=== PATIENT | female | born 1945 | race American Indian/Alaskan Native ===

== ENCOUNTER 2016-09-01 08:36 | Day surgery (SDC) | payer MEDICARE ==
[2016-09-01] MEDS ORDERED: NACL 0.9% 1000 ML 1,000 ML IV SCH (09:10)
[2016-09-01] MEDS ORDERED: WATER FOR IRRIG STERILE ONE (09:40)
--- NOTE | 2016-09-01 10:25 | Anesthesia Consultation ---
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), htn , ZULEIKA - Pulmonary Hx Smoking: Yes (1/2 ppd x30yrs) Hx Sleep Apnea: Yes (no cpap) - Cardiovascular System Hx Hypertension: Yes ( took off meds for 4 months) Hx Heart Attack/AMI: No - Central Nervous System Hx Neuromuscular Disorder: Yes (Blepharospasm bilateral, on lorazapam) Hx Seizures: No CVA: No - Endocrine Hx Renal Disease: No Hx Liver Disease: No Hx Non-Insulin Dependent Diabetes: No - Other Systems Hx Alcohol Use: Yes (1-2 IN EVENING X 20 YEARS) Hx Cancer: Yes (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
--- NOTE | 2016-09-01 10:26 | Anesthesia Day of Surgery ---
Anesthesia Day of Surgery - Day of Surgery Patient Examined: Yes Patient H&P Reviewed: Yes Patient is NPO: Yes
[2016-09-01] MEDS ORDERED: DIPRIVAN 10 MG/ML IV ONE ×2 (10:45)
--- NOTE | 2016-09-01 11:48 | Operative Report ---
Operative Report Operative Report: Date of procedure: 09/01/2016 Procedure: Colonoscopy with submucosal injection and snare polypectomy. Attending physician: Isaias Rodas MD Admitting Coordinator: Isaias Rodas MD Indication: Patient is a 71-year-old female who presents for screening colonoscopy. A colonoscopy service to evaluate patient for colorectal cancer screening.. Consent: Informed consent was obtained after advising the patient and family regarding nature of this procedure, its indications, potential benefits as well as possible complications including but not limited to bleeding perforation and adverse reaction to medication, infection as well as other cardiopulmonary complications. An informed written and verbal consent was then obtained after due opportunity was provided for questions and answers. Monitoring: Patient was monitored continuously with pulse oximetry and electrocardiographic recordings as well as blood pressure recordings. Vital signs remained stable throughout this procedure with no untoward events. Preoperative assessment: Patient was assessed immediately prior to this procedure for capacity to tolerate monitored anesthesia care and moderate sedation as well as general anesthesia. Patient's ASA classification is 2, Mallampati class is 2, Hyomental distance is 3. Instrument: Baxanon video colonoscope Medications: Propofol given intravenously in divided doses. For details please refer to anesthesia records. Description of procedure: Patient was placed in the left lateral decubitus position after achieving sedation, a digital rectal examination was performed following which the colonoscope was introduced into the anal verge and advanced to the cecum which was identified by the cecal valve, the appendiceal orifice, as well as by the cecal strap and direct transillumination. The colonoscope was subsequently withdrawn with careful inspection of all mucosal surfaces. Patient tolerated this procedure well and was subsequently taken to the recovery room. The following findings were noted. Findings: Patient had an 8 mm ascending colon sessile polyp which was elevated with submucosal injection of normal saline. It was then removed by snare electrocautery and retrieved. In the sigmoid colon and the descending colon, patient had diverticulosis of moderate severity. The rest of the colon to the cecum was normal. On the retroflex view at the anal verge, patient had internal hemorrhoids. Impression: Ascending colon polyp status post submucosal injection and snare polypectomy. Diverticulosis of the sigmoid and descending colon. Internal hemorrhoids. Plan: Follow pathology report. High-fiber diet. Repeat colonoscopy in 5 years.
--- NOTE | 2016-09-01 11:50 | Discharge Summary ---
Short Stay Discharge Plan Activity: advance as tolerated Weight Bearing Status: Weight Bear as Tolerated Diet: regular
[2016-09-01 12:18] VITALS: BP 133/74
--- NOTE | 2016-09-01 14:31 | Post Anesthesia Evaluation ---
- Post Anesthesia Evaluation Patient Participated: Yes Airway Patent: Yes Stable Respiratory Function: Yes Nausea/Vomiting: No Temp > 96.8F: Yes Pain Manageable: Yes Adequeate Hydration: Yes Anesthesia Complications: No Block Receding Appropriately: Not Applicable Patient on Ventilator: No
== END 2016-09-01 08:37 | disposition home or self-care (01) ==
LOC: GIO 08:36
PROVIDERS: ATTEND Internal Medicine Gastroenterology
DX: Z12.11 Encounter for screening for malignant neoplasm of colon (principal); D12.2 Benign neoplasm of ascending colon; K57.30 Diverticulosis of large intestine without perforation or abscess without bleeding; K64.8 Other hemorrhoids; F17.210 Nicotine dependence, cigarettes, uncomplicated; I10 Essential (primary) hypertension; Z72.89 Other problems related to lifestyle; G43.909 Migraine, unspecified, not intractable, without status migrainosus; E78.00 Pure hypercholesterolemia, unspecified; Z79.899 Other long term (current) drug therapy; Z79.82 Long term (current) use of aspirin; Z83.71 Family history of colonic polyps; Z80.0 Family history of malignant neoplasm of digestive organs; Z83.79 Family history of other diseases of the digestive system
CPT/HCPCS: 45381; 45385; 88305; J2704; J7030